=== PATIENT | female | born 1945 | race Caucasian/White ===

== ENCOUNTER 2020-04-11 06:37 | Day surgery (SDC) | payer MEDICARE, BC ==
[2020-04-11] MEDS ORDERED: fentaNYL 100 MCG/2 ML SDV ONE (07:27)
[2020-04-11] MEDS ORDERED: Midazolam 1 MG/ML 2 ML SDV ONE (07:27)
[2020-04-11] MEDS ORDERED: Propofol 200 MG/20 ML SDV ONE (07:27)
[2020-04-11] MEDS ORDERED: Sodium Chloride 0.9% 1,000 ML IV SCH (07:30)
[2020-04-11] MEDS ORDERED: Ondansetron 4 MG/2 ML SDV ONE (07:32)
[2020-04-11 09:22] VITALS: BP 129/81; PULSE 73
--- NOTE | 2020-04-11 13:06 | OR ---
DATE OF PROCEDURE: 04/11/2020 SURGEON: Berry Garcia MD PROCEDURES: 1. Esophagogastroduodenoscopy. 2. Colonoscopy. FINDINGS: 1. Inflammation at GE junction (biopsied multiple times using cold biopsy forceps), approximately 1 cm tongue of inflammation. 2. Plaque-like area in mid esophagus, less than 5 mm (biopsied using cold biopsy forceps). 3. Normal colonoscopy. COMPLICATIONS: None. [employer]PERVISOR PHOSPHORUS PROCESSING: None. ANESTHESIA: MAC. RISKS: Risks, benefits, alternatives, and limitations including but not limited to infection, bleeding, and perforation were explained to the patient, who wished to proceed. PROCEDURE IN DETAIL: The patient was placed in left lateral decubitus position. EGD scope was introduced and advanced atraumatically to second part of the duodenum. No evidence of duodenitis or ulceration. Within the stomach, there was no evidence of gastritis or ulcers. No abnormalities on retroflexion. The GE junction showed less than 1 cm area, which was biopsied including all the other 3 quadrants using cold biopsy forceps. Scope was brought back in mid esophagus. There was a plaque-like area as described above. This was not bleeding and no inflammation but was biopsied nonetheless. The remainder of the esophagus was inspected without abnormality. Digital rectal exam was performed next. Scope was introduced and advanced atraumatically to the ileocecal valve. A photo was taken of this. Scope was brought back through the ascending, transverse, descending colon, and retroflexed. No significant remaining diverticulosis. No old or new blood. No masses. No polyps. No abnormalities on retroflexion. Greater than 8 minutes was used to remove the scope. The patient tolerated the procedure well. Berry Garcia MD /[id number]
== END 2020-04-11 10:41 | disposition home or self-care (01) ==
LOC: JP.SDS 06:37
PROVIDERS: ATTEND Surgery
DX: Z12.11 Encounter for screening for malignant neoplasm of colon (principal); K29.70 Gastritis, unspecified, without bleeding; K21.0 Gastro-esophageal reflux disease with esophagitis; K22.8 Other specified diseases of esophagus; K31.89 Other diseases of stomach and duodenum; I10 Essential (primary) hypertension; E78.5 Hyperlipidemia, unspecified
CPT/HCPCS: 43239; 88305; G0121; J2250; J2405; J2704; J3010; J7030

== ENCOUNTER 2020-04-11 15:35 | Emergency (ER) | payer MEDICARE, BC | END 2020-04-11 16:00 | disposition left against medical advice (07) | LOC: JP.ED 15:35 | DX: Z53.21 Procedure and treatment not carried out due to patient leaving prior to being seen by health care provider (principal) ==

== ENCOUNTER 2022-01-22 07:03 | Day surgery (SDC) | payer MEDICARE, BC ==
[2022-01-22] MEDS ORDERED: Sodium Chloride 0.9% 10 ML Syringe FLUSH PRN (07:30)
[2022-01-22 08:34] VITALS: BP 145/65; PULSE 70
== END 2022-01-22 08:37 | disposition home or self-care (01) ==
LOC: JP.SDS 07:03
PROVIDERS: ATTEND Ophthalmology
DX: H25.12 Age-related nuclear cataract, left eye (principal); I10 Essential (primary) hypertension; E78.5 Hyperlipidemia, unspecified; R73.9 Hyperglycemia, unspecified
CPT/HCPCS: 66984; J3490; V2632

== ENCOUNTER 2025-04-20 06:48 | Day surgery (SDC) | payer MEDICARE, BC ==
[2025-04-20] MEDS ORDERED: Propofol 200 MG/20 ML SDV ONE (07:33)
[2025-04-20] MEDS ORDERED: fentaNYL 50 MCG/ML SDV ONE (07:33)
[2025-04-20] MEDS: Lactated Ringers 1,000 ML IV SCH (08:04)
[2025-04-20 09:33] VITALS: BP 123/59; PULSE 64
== END 2025-04-20 09:50 | disposition home or self-care (01) ==
LOC: JP.SDS 06:48
PROVIDERS: ATTEND Family Medicine
DX: Z12.11 Encounter for screening for malignant neoplasm of colon (principal); R19.5 Other fecal abnormalities; I48.91 Unspecified atrial fibrillation; I10 Essential (primary) hypertension; Z98.0 Intestinal bypass and anastomosis status
CPT/HCPCS: 00811; 45380; 88305; J2704; J3010; J7120